=== PATIENT | female | born 1995 | race African-American/Black ===

== ENCOUNTER 2021-05-12 08:55 | Emergency (ER) | payer MEDICAID, OTHER ==
[~2021-05-12] VITALS: Ht 165.1 cm; Wt 54.0 kg
[2021-05-12 09:02] VITALS: BP 114/48
[2021-05-12] MEDS ORDERED: IBUP-2741 PO (09:05)
[2021-05-12] MEDS ORDERED: FLUT9.9S BOTHNSTRLS (09:24)
[2021-05-12] MEDS ORDERED: TOPUD PO (09:24)
[2021-05-12] MEDS ORDERED: METOCLOPRAMIDE HCL 10MG TABLET PO ONE (09:30)
[2021-05-12] MEDS ORDERED: ACETAMINOPHEN 325MG TABLET PO ONE (09:30)
== END 2021-05-12 10:11 | disposition home or self-care (01) ==
LOC: ER 08:55
DX: U07.1 COVID-19 (principal); F41.8 Other specified anxiety disorders
CPT/HCPCS: 99283; C9803; U0003; U0005; J8597

== ENCOUNTER 2024-06-12 13:39 | Emergency (ER) | payer MEDICAID ==
[~2024-06-12] VITALS: Ht 165.1 cm; Wt 62.0 kg
[~2024-06-12 13:39] MED LIST: FLUT9.9S BOTHNSTRLS; IBUP-2741 PO; TOPUD PO
[2024-06-12 13:56] VITALS: O2SAT 99
[2024-06-12 14:47] LABS: CHLORIDE 107 mEq/L (98-107); POTASSIUM 3.8 mEq/L (3.5-5.1); SODIUM 138 mEq/L (136-145)
[2024-06-12 14:48] LABS: BASOPHILS % 0.2 % (0.0-2.0); CARBON DIOXIDE 24 mEq/L (21-32); EOSINOPHILS % 1.2 % (0.0-5.0); HEMATOCRIT. 36.6 % (36.0-48.0); HEMOGLOBIN. 12.3 g/dL (12.0-16.0); LYMPHOCYTES % 13.7 % (20.0-50.0); MEAN CORPUSCULAR HEMOGLOBIN 32.4 pg (28.0-32.0); MEAN CORPUSCULAR HGB CONC 33.5 g/dL (31.0-37.0); MEAN CORPUSCULAR VOLUME 96.7 fL (81.0-99.0); MEAN PLATELET VOLUME 10.6 fl (7.4-10.4); MONOCYTES % 7.9 % (2.0-8.0); PLATELET 194 x1000/uL (130-400); RED BLOOD CELL COUNT 3.79 mill/uL (4.2-5.4); WHITE BLOOD COUNT 14.3 x1000/uL (4.5-11.0)
[2024-06-12 14:49] LABS: CALCIUM 9.6 mg/dL (8.7-10.4)
[2024-06-12 14:53] LABS: CREATININE 0.6 mg/dL (0.6-1.0); GLUCOSE 76 mg/dL (70-105); UREA NITROGEN BLOOD 8 mg/dL (9-23)
[2024-06-12 14:54] LABS: CLARITY URINE CLOUDY (CLEAR); COLOR URINE YELLOW (YELLOW); GLUCOSE URINE NEGATIVE (NEGATIVE); KETONES URINE TRACE (NEGATIVE); LEUKOCYTE ESTERASE URINE TRACE (NEGATIVE); NITRITE URINE NEGATIVE (NEGATIVE); OCCULT BLOOD URINE NEGATIVE (NEGATIVE); PH URINE 5.5 (4.5-8.0); PROTEIN URINE TRACE (NEGATIVE); SPECIFIC GRAVITY URINE 1.029 (1.005-1.030); UROBILINOGEN URINE 0.2 E.U./dL (0.2-1.0)
[2024-06-12 15:02] LABS: BACTERIA URINE 1+; MUCUS URINE 1+ /lpf (< = 2+); SQUAMOUS EPITHELIAL CELL URINE 3+ /lpf (RARE/1+)
[2024-06-12 15:03] LABS: CALCIUM OXALATE CRYSTALS URINE 1+ /lpf
[2024-06-12 15:05] LABS: RBC URINE NONE SEEN /hpf (0-2)
[2024-06-12 15:24] LABS: B-HCG QUANTITATIVE 44224 mIU/mL (<3)
[2024-06-12] MEDS ORDERED: TOPUD MT (16:52)
[2024-06-12] MEDS ORDERED: ALBU90AE INH (16:52)
[2024-06-12] MEDS ORDERED: P50 MT (16:52)
[2024-06-12 17:00] VITALS: BP 114/70; PULSE 82; RESP 20; TEMP 36.83628; O2SAT 99
== END 2024-06-12 17:07 | disposition home or self-care (01) ==
LOC: ER 13:39
DX: O99.512 Diseases of the respiratory system complicating pregnancy, second trimester (principal); R06.02 Shortness of breath; Z3A.19 19 weeks gestation of pregnancy; O98.512 Other viral diseases complicating pregnancy, second trimester; Z20.822 Contact with and (suspected) exposure to COVID-19
CPT/HCPCS: 36415; 76815; 80048; 81003; 83880; 84702; 85025; 85379; 86850; 86900; 87420; 87426; 87804; 99285